=== PATIENT | female | born 1975 | race African-American/Black ===

== ENCOUNTER 2017-03-01 19:23 | Observation (INO) | payer OTHER ==
[~2017-03-01] VITALS: Ht 165.1 cm; Wt 156.8 kg
[~2017-03-01 19:23] MED LIST: CARV12.5 PO; COZA50TA PO; FURO1TAB60 PO; POTA-163 PO; PREN29TA PO
[2017-03-01 19:26] VITALS: BP 186/84; PULSE 93; RESP 20; TEMP 98.8; O2SAT 98
[2017-03-01 20:54] VITALS: BP 189/130; PULSE 82; RESP 14; O2SAT 100
[2017-03-01] MEDS ORDERED: ASPIRIN 325 MG TAB PO ONE (21:00)
--- NOTE | 2017-03-01 21:00 | RADRPT ---
EXAM DATE/TIME: 03/01/2017 20:14 [facility] COMPARISON: No previous studies available for comparison. INDICATIONS : Chest pain. MEDICAL HISTORY : Congestive heart failure. SURGICAL HISTORY : None. ENCOUNTER: Initial ACUITY: 3 days PAIN SCORE: 3/10 LOCATION: Left chest FINDINGS: PA and lateral views of the chest demonstrate cardiomegaly. Tortuous aorta. No consolidation or signi ficant effusion. CONCLUSION: 1. Cardiomegaly. No focal consolidation or significant effusion. David Mar MD on March 01, 2017 at 20:57 Board Certified Radiologist. This report was verified electronically.
[2017-03-01 21:06] LABS: AUTOMATED NEUTROPHIL # 5.7 TH/MM3 (1.8-7.7); BASOPHIL # 0.1 TH/MM3 (0-0.2); BASOPHIL % 0.6 % (0.0-2.0); EOSINOPHIL % 0.5 % (0.0-4.0); HEMATOCRIT 37.2 % (35.0-46.0); HEMOGLOBIN 11.9 GM/DL (11.6-15.3); LYMPH % 27.9 % (9.0-44.0); LYMPHOCYTE # 2.5 TH/MM3 (1.0-4.8); MEAN CELL VOLUME 83.3 FL (80.0-100.0); MEAN CORPUSCULAR HEMOGLOBIN 26.7 PG (27.0-34.0); MEAN CORPUSCULAR HGB CONC 32.1 % (32.0-36.0); MONO % 8.1 % (0.0-8.0); MONOCYTE # 0.7 TH/MM3 (0-0.9); NEUT % 62.9 % (16.0-70.0); PLATELET COUNT 340 TH/MM3 (150-450); RED BLOOD COUNT 4.46 MIL/MM3 (4.00-5.30); RED CELL DISTRIBUTION WIDTH 14.6 % (11.6-17.2); WHITE BLOOD COUNT 9.1 TH/MM3 (4.0-11.0)
--- NOTE | 2017-03-01 21:23 | PD ---
HPI Chief Complaint: Chest Pain Time Seen by Provider: 20:43 Travel History International Travel<30 days: No Contact w/Intl Traveler<30days: No Traveled to known affect area: No History of Present Illness HPI 42-year-old female that presents to the ED for evaluation of chest pain and history of CHF. Per patient she has a history of cardiomyopathy secondary to . Per patient she has had heart failure and has been having chest pain with exertion as well as shortness of breath with exertion for the past couple of weeks. She does report that she is noncompliant. Per patient she takes Tylenol and she is supposed to be on Lasix and potassium but she has not taken the Lasix "for a while". It asked why she states that she couldn't handle working and having to go urinate frequently. patient's chest pain is 4/ 10. Worst with excertion. Did not take an aspirin today. History of hypertension. Denies . Denies abdominal pain. Nausea or vomiting. No fevers chills or sweats. No cough or runny nose. Per patient she does have an appointment on Monday with Dr. Lawson but because her symptoms continue she was concerned she will be able to make it. PFSH Past Medical History Autoimmune Disease: No Cancer: No Cardiomyopathy: Yes Cardiovascular Problems: No Diabetes: No Diminished Hearing: No Endocrine: No Genitourinary: No Headaches: No Hypertension: Yes Immune Disorder: No Musculoskeletal: No Neurologic: No Psychiatric: No Reproductive: No Respiratory: No Migraines: No Seizures: No Thyroid Disease: No Influenza Vaccination: No ?: Not LMP: 02/07/2017 Menopausal: No : 4 Para: 3 Miscarriage: 0 Past Surgical History Surgical History: No Previous Surgery Other Surgery: No Social History Alcohol Use: No Tobacco Use: No Substance Use: No Allergies-Medications (Allergen,Severity, Reaction): Coded Allergies: No Known Allergies (Unverified , 01/08/16) Reported Meds & Prescriptions Reported Meds & Active Scripts Active Potassium Chloride ER (Potassium Chloride) 20 Meq Tab 20 Meq PO DAILY Cozaar (Losartan Potassium) 50 Mg Tab 100 Mg PO DAILY Lasix (Furosemide) 40 Mg Tab 40 Mg PO DAILY Coreg (Carvedilol) 12.5 Mg Tab 25 Mg PO Q12HR Reported Plus Iron 29-1 mg ( Vit-Iron Carbonyl) 1 Tab Tab 1 Tab PO DAILY Review of Systems Except as stated in HPI: all other systems reviewed are Neg Physical Exam Narrative GENERAL: Morbidly obese. SKIN: Warm and dry. HEAD: Atraumatic. Normocephalic. EYES: Pupils equal and round. No scleral icterus. No injection or drainage. ENT: No nasal bleeding or discharge. Mucous membranes pink and moist. Tongue is midline. No Uvula deviation. NECK: Trachea midline. No JVD. CARDIOVASCULAR: Regular rate and rhythm. RESPIRATORY: No accessory muscle use. Clear to auscultation. Breath sounds equal bilaterally. GASTROINTESTINAL: Abdomen soft, non-tender, nondistended. Hepatic and splenic margins not palpable. MUSCULOSKELETAL: Extremities without clubbing, cyanosis, or edema. No obvious deformities. Full range of motion of the upper and lower extremities bilaterally. 2+ pulses bilaterally. Patient does have 1+ pitting edema on the lower legs bilaterally. NEUROLOGICAL: Awake and alert. No obvious cranial nerve deficits. Motor grossly within normal limits. Five out of 5 muscle strength in the arms and legs. Normal speech. PSYCHIATRIC: Appropriate mood and affect; insight and judgment normal. Data Data Last Documented VS Vital Signs Date Time Temp Pulse Resp B/P (MAP) Pulse Ox O2 Delivery O2 Flow Rate FiO2 03/01/17 22:42 80 21 181/95 (123) 98 03/01/17 20:47 Room Air 03/01/17 19:26 98.8 Orders Orders Electrocardiogram (03/01/17 19:48) Basic Metabolic Panel (Bmp) (03/01/17 19:48) Ckmb (Isoenzyme) Profile (03/01/17 19:48) Complete Blood Count With Diff (03/01/17 19:48) Magnesium (Mg) (03/01/17 19:48) Prothrombin Time / Inr (Pt) (03/01/17 19:48) Act Partial Throm Time (Ptt) (03/01/17 19:48) Troponin I (03/01/17 19:48) Chest, Pa & Lat (03/01/17 19:48) B-Type Natriuretic Peptide (03/01/17 19:48) Aspirin (Aspirin) (03/01/17 21:00) Admit Order (Ed Use Only) (03/01/17 22:48) Labs Laboratory Tests Test 03/01/17 20:30 03/01/17 20:35 Prothrombin Time 10.0 SEC Prothromb Time International Ratio 1.0 RATIO Activated Partial Thromboplast Time 28.2 SEC White Blood Count 9.1 TH/MM3 Red Blood Count 4.46 MIL/MM3 Hemoglobin 11.9 GM/DL Hematocrit 37.2 % Mean Corpuscular Volume 83.3 FL Mean Corpuscular Hemoglobin 26.7 PG Mean Corpuscular Hemoglobin Concent 32.1 % Red Cell Distribution Width 14.6 % Platelet Count 340 TH/MM3 Mean Platelet Volume 9.0 FL Neutrophils (%) (Auto) 62.9 % Lymphocytes (%) (Auto) 27.9 % Monocytes (%) (Auto) 8.1 % Eosinophils (%) (Auto) 0.5 % Basophils (%) (Auto) 0.6 % Neutrophils # (Auto) 5.7 TH/MM3 Lymphocytes # (Auto) 2.5 TH/MM3 Monocytes # (Auto) 0.7 TH/MM3 Eosinophils # (Auto) 0.0 TH/MM3 Basophils # (Auto) 0.1 TH/MM3 CBC Comment DIFF FINAL Differential Comment Blood Urea Nitrogen 16 MG/DL Creatinine 0.86 MG/DL Random Glucose 98 MG/DL Calcium Level 8.8 MG/DL Magnesium Level 2.4 MG/DL Sodium Level 139 MEQ/L Potassium Level 3.9 MEQ/L Chloride Level 103 MEQ/L Carbon Dioxide Level 28.5 MEQ/L Anion Gap 8 MEQ/L Estimat Glomerular Filtration Rate 88 ML/MIN Total Creatine Kinase 91 U/L Troponin I LESS THAN 0.02 NG/ML B-Type Natriuretic Peptide 76 PG/ML MDM Medical Decision Making Medical Screen Exam Complete: Yes Emergency Medical Condition: Yes Medical Record Reviewed: Yes Interpretation(s) Last Impressions Chest X-Ray 03/01/171947 Signed Impressions: Service Date/Time: Wednesday, March 01, 2017 20:14 - CONCLUSION: 1. Cardiomegaly. No focal consolidation or significant effusion. David Mar MD CBC & BMP Diagram 03/01/17 20:35 Calcium Level 8.8, Magnesium Level 2.4 troponin and CKMB negative BNP 70s Differential Diagnosis CHF exacerbation versus chest pain versus ACS versus a typical chest pain versus cardiomyopathy Narrative Course 42-year-old female that presents to the ED for evaluation of chest pain and shortness of breath with exertion. Patient was properly examined and was found to have signs and symptoms concerning for cardiac disease. ACS versus CHF. Labs and imaging were ordered. Patient was given aspirin. Labs and imaging were essentially unremarkable. I did have discussion with the patient about the risks and benefits of admission to chest pain center versus not. She reports she does have cardiac history and is concerned that she is having chest discomfort and shortness of breath with exertion. Patient does agree to admission to the chest pain center. This was discussed with my attending who agrees with plan. Patient was admitted by me. Diagnosis Primary Impression: Chest pain in adult Admitting Information Admitting Physician Requests: Observation Jesse Sharif Mar 01, 2017 21:23
[2017-03-01 21:34] LABS: BICARBONATE 28.5 MEQ/L (21.0-32.0); BLOOD UREA NITROGEN 16 MG/DL (7-18); CALCIUM 8.8 MG/DL (8.5-10.1); CHLORIDE 103 MEQ/L (98-107); CREATININE 0.86 MG/DL (0.50-1.00); GLOMERULAR FILTRATION RATE 88 ML/MIN (>89); GLUCOSE,RANDOM 98 MG/DL (74-106); MAGNESIUM 2.4 MG/DL (1.5-2.5); SODIUM (NA) 139 MEQ/L (136-145)
[2017-03-01 21:38] LABS: TROPONIN I LESS THAN 0.02 NG/ML (0.02-0.05)
[2017-03-01 22:42] VITALS: BP 181/95; PULSE 80; RESP 21; O2SAT 98
[2017-03-01] MEDS ORDERED: SODIUM CHLORIDE 0.9% FLUSH 10 ML FLUSH IV FLUSH PRN (23:00)
[2017-03-02] VITALS (9 sets, daily range): BP systolic 143–182; BP diastolic 74–104; PULSE 80–89; RESP 18–20; TEMP 98–98.5; O2SAT 97–100
--- NOTE | 2017-03-02 00:25 | EKG ---
Date Performed: 03/01/2017 Time Performed: 20:28:27 PTAGE: 42 years EKG: Sinus rhythm POSSIBLE RIGHT ATRIAL ENLARGEMENT LEFT ATRIAL ENLARGEMENT NONSPECIFIC T-WAVE ABNORMALITY ABNORMAL EC G Compared to prior tracing from 12/14/11, non-specific ST/T wave changes noted DOCTOR: Herson Roldan Interpretating Date/Time 03/03/2017 06:59:54
[2017-03-02] MEDS ORDERED: NITROGLYCERIN 2% OINT 1 GM PACKET TOPICAL ONE (00:45)
[2017-03-02 01:47] LABS: TROPONIN I LESS THAN 0.02 NG/ML (0.02-0.05)
[2017-03-02] MEDS ORDERED: cloNIDine HCL 0.1 MG TAB PO ONE (02:30)
[2017-03-02 05:53] LABS: TROPONIN I LESS THAN 0.02 NG/ML (0.02-0.05)
[2017-03-02] MEDS ORDERED: SODIUM CHLORIDE 0.9% FLUSH 10 ML FLUSH IV FLUSH SCH (09:00)
[2017-03-02] MEDS ORDERED: POTASSIUM CHLORIDE 20 MEQ CONTROLLED RELEASE TAB PO SCH (10:00)
[2017-03-02] MEDS ORDERED: FUROSEMIDE 40 MG TAB PO SCH (10:00)
[2017-03-02] MEDS ORDERED: CARVEDILOL 12.5 MG TAB PO SCH (10:00)
--- NOTE | 2017-03-02 10:06 | HHI.HP ---
[facility] Primary Care Physician Barbara Drummond MD Chief Complaint Chest pain History of Present Illness This is a 42-year-old female history of cardiomyopathy that was diagnosed January 2016 that presents to ED with a complaint of left-sided chest discomfort with shortness of breath as well as having shortness of breath with exertion. States left-sided chest discomfort with shortness of breath feels like a pinching sensation and will last for usually about 2 hours. This has been going on now for the last 3 days. Found nothing in particular brings on. She also states that she has had shortness of breath while walking but has not been associated with chest discomfort and has been going on for 2 days. She is nota weight change. She has not noticed swelling her legs. No recent illnesses. Voices compliance with all her medications. States she has been following Dr. Lawson and has an appointment with him next Monday. States that she has not had a stress test or heart catheterization. Upon reviewing records, consultation of Dr. Lawson stated that cardiomyopathy was likely related to a nonischemic cardiomyopathy. Echo in 2016 showed an EF of 30%. She states that the echo done in his office had an EF in the range of 30s. Color taking carvedilol, Lasix, and potassium. Review of Systems General: Patient denies fevers, chills recent, and recent travel HEENT: Patient denies headache, sore throat, difficulty swallowing. Cardiovascular: Has the chest discomfort as mentioned above. Denies sensation of heart beating rapidly or irregularly. No syncope. Denies diaphoresis. Respiratory: Has had shortness of breath with her chest discomfort as well as having shortness of breath without the chest discomfort but with exertion which she describes as walking even a short distance. She describes about 50 feet. Denies inspirational chest discomfort. Denies coughing wheezing or hemoptysis. GI: Patient denies nausea, vomiting, diarrhea, abdominal pain, bloody stools. Musculoskeletal: Patient denies joint pain or edema. Denies calf pain or edema. Neurovascular: Patient denies numbness, tingling, weakness in extremities. Denies headache. Endocrine: Denies polyuria and polydipsia. Hematologic: Denies easy bruising. Skin: Denies rash or itching. Past Family Social History Allergies: Coded Allergies: No Known Allergies (Unverified , 01/08/16) Past Medical History Hypertension, cardiomyopathy, obesity. Denies diabetes, hyperlipidemia and no knowledge of coronary disease but states she's never had stress testing or heart catheterization. Past Surgical History Denies. Reported Medications Reported Meds & Active Scripts Active Potassium Chloride ER (Potassium Chloride) 20 Meq Tab 20 Meq PO DAILY Cozaar (Losartan Potassium) 50 Mg Tab 100 Mg PO DAILY Lasix (Furosemide) 40 Mg Tab 40 Mg PO DAILY Coreg (Carvedilol) 12.5 Mg Tab 25 Mg PO Q12HR Active Ordered Medications Current Medications Medications (Trade) Dose Ordered Sig/Rosana Route Start Time Stop Time Status Last Admin (NS Flush) 2 ml UNSCH PRN IV FLUSH 03/01/17 23:00 (NS Flush) 2 ml BID IV FLUSH 03/02/17 09:00 03/02/17 09:32 (Coreg) 25 mg Q12HR PO 03/02/17 10:00 UNV (Lasix) 40 mg DAILY PO 03/02/17 10:00 UNV (KCl) 20 meq DAILY PO 03/02/17 10:00 UNV Family History States that her father had a CABG in his 60s. Social History Lifetime nonsmoker. Denies alcohol or illicit drugs. She works in [employer] at a local [employer]. Physical Exam Vital Signs Vital Signs Date Time Temp Pulse Resp B/P (MAP) Pulse Ox O2 Delivery O2 Flow Rate FiO2 03/02/17 08:00 98.0 89 20 155/87 (109) 98 03/02/17 05:56 83 03/02/17 05:30 98.0 84 18 143/74 (97) 100 03/02/17 04:30 85 20 164/95 (118) 98 Room Air 03/02/17 03:35 84 20 165/94 (117) 98 Room Air 03/02/17 02:26 85 180/104 (129) 03/02/17 01:36 80 181/95 (123) 03/02/17 00:23 82 18 182/81 (114) 99 Room Air 03/01/17 22:42 80 21 181/95 (123) 98 03/01/17 22:42 98 21 03/01/17 20:54 82 14 189/130 (149) 100 03/01/17 20:47 93 99 Room Air 03/01/17 19:26 98.8 93 20 186/84 (118) 98 Room Air Physical Exam GENERAL: This is a well-nourished, well-developed patient, obese patient weighing 156 kg with a BMI of 57.5, in no apparent distress. Patient speaks in clear complete sentences. Patient is pleasant. HEENT: Head is atraumatic and normocephalic. Neck is supple without lymphadenopathy and trachea is midline. No JVD or carotid bruits. CARDIOVASCULAR: Regular rate and rhythm without murmurs, gallops, or rubs. RESPIRATORY: Clear to auscultation. Breath sounds equal bilaterally. No wheezes , rales, or rhonchi. Chest wall is tender but does not feel similar to the discomfort she has been having. No use of accessory muscles. GASTROINTESTINAL: Abdomen is nontender, nondistended. Abdomen soft. No obvious pulsatile mass or bruit. No CVA tenderness. Strong femoral pulses bilaterally. Normal bowel sounds in all quadrants. MUSCULOSKELETAL: Patient is moving upper and lower extremities freely. No calf tenderness or edema, no Homans sign. Strong pulses in upper and lower extremities. NEUROLOGICAL: Patient is alert and oriented. Cranial nerves 2-12 are grossly intact. No focal deficits and speech is clear. SKIN: No rash and turgor is normal. Laboratory Laboratory Tests Test 03/01/17 20:30 03/01/17 20:35 03/02/17 00:40 03/02/17 03:55 Prothrombin Time 10.0 Prothromb Time International Ratio 1.0 Activated Partial Thromboplast Time 28.2 White Blood Count 9.1 Red Blood Count 4.46 Hemoglobin 11.9 Hematocrit 37.2 Mean Corpuscular Volume 83.3 Mean Corpuscular Hemoglobin 26.7 Mean Corpuscular Hemoglobin Concent 32.1 Red Cell Distribution Width 14.6 Platelet Count 340 Mean Platelet Volume 9.0 Neutrophils (%) (Auto) 62.9 Lymphocytes (%) (Auto) 27.9 Monocytes (%) (Auto) 8.1 Eosinophils (%) (Auto) 0.5 Basophils (%) (Auto) 0.6 Neutrophils # (Auto) 5.7 Lymphocytes # (Auto) 2.5 Monocytes # (Auto) 0.7 Eosinophils # (Auto) 0.0 Basophils # (Auto) 0.1 CBC Comment DIFF FINAL Differential Comment Blood Urea Nitrogen 16 Creatinine 0.86 Random Glucose 98 Calcium Level 8.8 Magnesium Level 2.4 Sodium Level 139 Potassium Level 3.9 Chloride Level 103 Carbon Dioxide Level 28.5 Anion Gap 8 Estimat Glomerular Filtration Rate 88 Total Creatine Kinase 91 81 81 Troponin I LESS THAN 0.02 LESS THAN 0.02 LESS THAN 0.02 B-Type Natriuretic Peptide 76 Test 03/02/17 09:41 Result Diagram: 03/01/17203403/01/172034 Imaging Last 48 hours Impressions Chest X-Ray 03/01/171947 Signed Impressions: Service Date/Time: Wednesday, March 01, 2017 20:14 - CONCLUSION: 1. Cardiomegaly. No focal consolidation or significant effusion. David Mar MD Course EKGs are sinus rhythm with no significant ST segment depressions or elevations. There are inferior T-wave changes are nonspecific. Caprini VTE Risk Assessment Caprini VTE Risk Assessment: No/Low Risk (score <= 1) Caprini Risk Assessment Model Point Value = 1 Point Value = 2 Point Value = 3 Point Value = 5 Age 41-60 Minor surgery BMI > 25 kg/m2 Swollen legs Varicose veins or History of unexplained or recurrent spontaneous Oral contraceptives or hormone replacement Sepsis (< 1 month) Serious lung disease, including pneumonia (< 1 month) Abnormal pulmonary function Acute myocardial infarction Congestive heart failure (< 1 month) History of inflammatory bowel disease Medical patient at bed rest Age 61-74 Arthroscopic surgery Major open surgery (> 45 min) Laparoscopic surgery (> 45 min) Malignancy Confined to bed (> 72 hours) Immobilizing plaster cast Central venous access Age >= 75 History of VTE Family history of VTE Factor V Leiden Prothrombin [id number] Lupus anticoagulant Anticardiolipin antibodies Elevated serum homocysteine Heparin-induced thrombocytopenia Other congenital or acquired thrombophilia Stroke (< 1 month) Elective arthroplasty Hip, pelvis, or leg fracture Acute spinal cord injury (< 1 month) Prophylaxis Regimen Total Risk Factor Score Risk Level Prophylaxis Regimen 0-1 Low Early ambulation 2 Moderate Order ONE of the following: *Sequential Compression Device (SCD) *Heparin 5000 units SQ BID 3-4 Higher Order ONE of the following medications: *Heparin 5000 units SQ TID *Enoxaparin/Lovenox 40 mg SQ daily (WT < 150 kg, CrCl > 30 mL/min) *Enoxaparin/Lovenox 30 mg SQ daily (WT < 150 kg, CrCl > 10-29 mL/min) *Enoxaparin/Lovenox 30 mg SQ BID (WT < 150 kg, CrCl > 30 mL/min) AND/OR *Sequential Compression Device (SCD) 5 or more Highest Order ONE of the following medications: *Heparin 5000 units SQ TID (Preferred with Epidurals) *Enoxaparin/Lovenox 40 mg SQ daily (WT < 150 kg, CrCl > 30 mL/min) *Enoxaparin/Lovenox 30 mg SQ daily (WT < 150 kg, CrCl > 10-29 mL/min) *Enoxaparin/Lovenox 30 mg SQ BID (WT < 150 kg, CrCl > 30 mL/min) AND *Sequential Compression Device (SCD) Assessment and Plan Assessment and Plan * Chest pain: Patient has had chest pain with shortness of breath as well as shortness of breath with exertion. She's had troponin is normal 3. She'll be seen by Dr. Cano of cardiology in the chest pain center. I discussed the patient with her musical instrument maker Dr. Lawson whereas requested to rule out PE and at that has ruled out to get a CTA of the coronaries. Further plan pending results of the studies. * Hypertension: Continue current medication. * Cardiomyopathy: Patient has history of cardiomyopathy. This will need to be followed by her musical instrument maker. Resume medications. * Obesity: Patient has been counseled on the importance of diet, exercise, and weight loss. Patient is stable at this time. She is agreeable to this plan. Moustapha Drake Mar 02, 2017 10:05
[2017-03-02] MEDS ORDERED: REGADENOSON INJ 0.4 MG/5 ML SYR ONE (11:21)
--- NOTE | 2017-03-02 13:00 | RADRPT ---
EXAM DATE/TIME: 03/02/2017 11:03 [facility] COMPARISON: CHEST PA & LAT, March 01, 2017, 20:14. INDICATIONS : Left sided chest pain with shortness of breath for three days. Angina. DOSE: 35.0 mCi Tc99m Myoview at stress. 11.0 mCi Tc99m Myoview at rest. 0.4 mg Lexiscan STRESS SYMPTOMS: Dyspnea. EJECTION FRACTION: 46% MEDICAL HISTORY : Hypertension. SURGICAL HISTORY : None. ENCOUNTER: Initial ACUITY: 3 days PAIN SCALE: 7/10 LOCATION: Left chest TECHNIQUE: The patient underwent pharmacologic stress with infusion of prescribed dose. Continuous ECG tracing was monitored during stress. Gated SPECT imaging was performed after stress and conventional SPECT i maging was performed at rest. The examination was performed on a SPECT/CT scanner, both attenuation and non-corrected datasets were reviewed. The FINDINGS: DISTRIBUTION: The maximum perfused segment at stress is in the septal wall. PERFUSION STUDY: The pattern of perfusion at stress is within normal limits and there is a fixed defect in the anterol ateral septal wall probably breast attenuation artifact. GATED STUDY: There is intact wall motion and thickening without hypokinetic or dyskinetic segments. CONCLUSION: No visual ischemia. RISK CATEGORY: Low (<1% Annual Mortality Rate) Emerson Pinedo MD on March 02, 2017 at 12:57 Board Certified Radiologist. This report was verified electronically.
[2017-03-02] MEDS ORDERED: LOSA50TA PO (14:20)
--- NOTE | 2017-03-02 14:21 | HHI.DCPOC ---
Discharge Care Plan Goals to Promote Your Health * To prevent worsening of your condition and complications * To maintain your health at the optimal level Directions to Meet Your Goals Take your medications as prescribed Follow your dietary instruction Follow activity as directed Keep your appointments as scheduled Take your immunizations and boosters as scheduled If your symptoms worsen call your PCP, if no PCP go to Urgent Care Center or Emergency Room Smoking is Dangerous to Your Health. Avoid second hand smoke Call the 24-hour hour crisis hotline for domestic abuse at Moustapha Drake Mar 02, 2017 14:21
--- NOTE | 2017-03-02 15:07 | EKG ---
Date Performed: 03/02/2017 Time Performed: 00:43:33 PTAGE: 42 years EKG: Sinus rhythm LEFT ATRIAL ENLARGEMENT POSSIBLE LEFT VENTRICULAR HYPERTROPHY NONSPECIFIC T-WAVE ABNORMALITY ABNORMA L ECG PREVIOUS TRACING : 03/01/2017 20.28 Since previous tracing, no significant change noted DOCTOR: David Cano Interpretating Date/Time 03/02/2017 15:06:05
--- NOTE | 2017-03-02 15:15 | TR ---
Date Performed: 03/02/2017 Time Performed: 11:27:29 DOCTOR: David Cano DRUG LIST: CLINICAL HISTORY: REASON FOR TEST: REASON FOR ENDING: OBSERVATION: CONCLUSION: Lexiscan stress test was performed under standard four minute protocol. Radionuclid e was injected one minute prior to ending the test. No electrocardiographic abormalities were present to suggest ischemia. Nuclear imaging and interpretation are pending. COMMENTS:
== END 2017-03-02 16:22 | disposition home or self-care (01) ==
LOC: NEPE 19:23 → NEDA 22:52 → NEDH 03-02 06:18 → NEPHCDU 03-02 13:31
PROVIDERS: ADMIT Internal Medicine Interventional Cardiology; ATTEND Internal Medicine Interventional Cardiology
DX: R07.9 Chest pain, unspecified (principal); I11.9 Hypertensive heart disease without heart failure; I42.9 Cardiomyopathy, unspecified; E66.9 Obesity, unspecified; R06.02 Shortness of breath; R94.31 Abnormal electrocardiogram [ECG] [EKG]; Z91.19 Patient's noncompliance with other medical treatment and regimen
CPT/HCPCS: 71046; 78452; 80048; 82550; 83735; 83880; 84484; 84703; 85025; 85379; 85610; 85730; 93005; 93017; 99285; A9502; G0378; J2785